=== PATIENT | male | born 1985 | race Two or more races ===

== ENCOUNTER 2017-03-15 11:49 | Emergency (ER) | payer BC ==
[~2017-03-15] VITALS: Ht 182.9 cm; Wt 90.9 kg
[2017-03-15 11:52] VITALS: BP 160/85
[2017-03-15] MEDS ORDERED: SODIUM CHLORIDE FLUSH 10ML SYR IVF ONE (13:30)
[2017-03-15] MEDS ORDERED: SODIUM CHLORIDE 0.9% 1,000ML IVBOLUS ONE (13:30)
[2017-03-15 13:45] LABS: HEMATOCRIT 44.9 % (39.2-51.8); HEMOGLOBIN 15.4 g/dL (13.7-18.0); WHITE BLOOD COUNT 8.6 x10^3/uL (3.4-10)
[2017-03-15] MEDS ORDERED: ALLO300T PO (13:46)
[2017-03-15] MEDS ORDERED: [UNRECOGNIZED DRUG - OTHER] (13:46)
[2017-03-15] MEDS ORDERED: LISI-170 PO (13:46)
[2017-03-15] MEDS ORDERED: METF500T4 PO (13:46)
[2017-03-15 14:25] LABS: BLOOD UREA NITROGEN 23 mg/dL (7-18)
[2017-03-15 14:28] LABS: ASPARTATE AMINO TRANSFERASE 33 U/L (15-37)
== END 2017-03-15 14:31 | disposition home or self-care (01) ==
LOC: ED 14:25
DX: K62.5 Hemorrhage of anus and rectum (principal); E11.9 Type 2 diabetes mellitus without complications; I10 Essential (primary) hypertension
CPT/HCPCS: 36415; 80053; 83690; 85025; 99284